=== PATIENT | male | born 1975 | race Caucasian/White ===

== ENCOUNTER 2020-10-15 17:57 | Emergency (ER) | payer BC ==
[~2020-10-15] VITALS: Ht 185.4 cm; Wt 149.7 kg
[2020-10-15 18:04] VITALS: BP 135/92
[2020-10-15] MEDS ORDERED: LISINOPRIL10 MG PO (18:08)
[2020-10-15] MEDS ORDERED: CEPHALEXIN500 MG PO (19:18)
[2020-10-15] MEDS ORDERED: VALACYCLOVIR1000 MG PO (19:18)
== END 2020-10-15 19:27 | disposition home or self-care (01) ==
LOC: M.ERS 17:57
DX: L53.9 Erythematous condition, unspecified (principal); I10 Essential (primary) hypertension; Z88.0 Allergy status to penicillin